=== PATIENT | male | born 1930 | race Caucasian/White ===

== ENCOUNTER → 2017-03-07 | Outpatient (CLI) | payer BC ==
[~2017-03-07] MED LIST: ASPCH81X PO; CARV25TA2 PO; LISI-729 PO; LOVA40TA4 PO; METF500T PO
[2017-03-07 13:27] LABS: ESTIMATED AVERAGE GLUCOSE 131 mg/dl; HA1C FLAG Normal (Normal)
[2017-03-07 13:40] LABS: ALT/SGPT 27 U/L (12-78); AST/SGOT 18 U/L (15-37); BLOOD UREA NITROGEN 19 mg/dl (7-18); BUN/CREATININE RATIO 12.5 (10-20); CALCIUM 8.3 mg/dl (8.5-10.1); CARBON DIOXIDE 27 mmol/L (21-32); CHLORIDE 102 mmol/L (98-107); GLUCOSE 109 mg/dl (70-99); POTASSIUM 4.6 mmol/L (3.5-5.1); SODIUM 137 mmol/L (136-145)
[2017-03-07 13:43] LABS: ALKALINE PHOSPHATASE 63 U/L (45-117); CHOLESTEROL 138 mg/dl (0-200); CHOLESTEROL/HDL RATIO 2.8; HDL CHOLESTEROL 49 mg/dl; LDL CHOLESTEROL CALCULATED 64 mg/dl; TRIGLYCERIDES 123 mg/dl (0-150); VERY LOW DENSITY LIPOPROT CALC 25 mg/dl
[2017-03-07 14:31] LABS: RATIO 451.4 mcg/mg (0-30.0)
== END | disposition home or self-care (01) ==
LOC: C.LABMFLN 08:05
PROVIDERS: ATTEND Family Medicine
DX: E11.9 Type 2 diabetes mellitus without complications (principal); I10 Essential (primary) hypertension; I25.10 Atherosclerotic heart disease of native coronary artery without angina pectoris; C43.9 Malignant melanoma of skin, unspecified

== ENCOUNTER → 2017-04-25 | Outpatient (CLI) | payer BC | END | disposition home or self-care (01) | LOC: C.PATHSPEC 10:12 | PROVIDERS: ATTEND Family Medicine | DX: L57.0 Actinic keratosis (principal) ==

== ENCOUNTER → 2017-05-25 | Day surgery (SDC) | payer BC ==
[2017-05-16 10:51] VITALS: Ht 172.7 cm; Wt 100.0 kg
[2017-05-18 10:08] LABS: BASO % 0.5 %; BASO ABS # 0.03 K/uL (0-0.2); COMPLETE YES; EOS % 2.7 %; HEMATOCRIT 37.7 % (42-52); IG% 0.4 %; LYMPH ABS # 1.26 K/uL (1.2-3.4); MEAN CORPUSCULAR HEMOGLOBIN 33.2 pg (25-34); MEAN CORPUSCULAR HGB CONC 35.3 g/dl (32-36); MEAN PLATELET VOLUME 9.6 fL (7.4-10.4); MONO % 11.7 %; NEUT % 61.7 %; PLATELET COUNT 173 K/uL (130-400); RED BLOOD COUNT 4.01 M/uL (4.7-6.1); WHITE BLOOD COUNT 5.49 K/uL (4.8-10.8)
[2017-05-18 10:18] LABS: PROTHROMBIN TIME (PATIENT) 10.8 SECONDS (9.0-12.0)
[2017-05-18 10:40] LABS: POTASSIUM 4.2 mmol/L (3.5-5.1)
[~2017-05-25] VITALS: Ht 172.7 cm; Wt 100.0 kg
[~2017-05-25] MED LIST changes: +LIDOCAINE/EPINEPHRINE 1% INJ 50 ML VIAL ONE
[2017-05-25 09:48] VITALS: BP 163/77; PULSE 51; TEMP 36.6; O2SAT 97
--- NOTE | 2017-05-25 10:50 | History & Physical Bridge - [place] ---
H&P Re-Evaluation Bridge Note: I have examined the patient, reviewed the History & Physical and in the interval since the performance of the History & Physical I have noted the following changes of clinical significance: No changes noted
--- NOTE | 2017-05-25 11:09 | Progress Note ---
Progress Note Date of Service May 25, 2017. Progress Note PATIENT'S RIGHT EAR SKIN LESION HAS COMPLETELY RESOLVED AND THEREFORE SURGERY CANCELLED. WILL FOLLOW PATIENT IN THE OFFICE.
== END | disposition home or self-care (01) ==
LOC: X.SURG 09:05
DX: L98.9 Disorder of the skin and subcutaneous tissue, unspecified (principal); I25.10 Atherosclerotic heart disease of native coronary artery without angina pectoris; M19.90 Unspecified osteoarthritis, unspecified site; I10 Essential (primary) hypertension; E78.5 Hyperlipidemia, unspecified; E11.9 Type 2 diabetes mellitus without complications; Z82.49 Family history of ischemic heart disease and other diseases of the circulatory system; Z82.2 Family history of deafness and hearing loss; Z79.82 Long term (current) use of aspirin; Z79.899 Other long term (current) drug therapy; Z79.84 Long term (current) use of oral hypoglycemic drugs; Z53.09 Procedure and treatment not carried out because of other contraindication

== ENCOUNTER → 2017-10-18 | Outpatient (CLI) | payer BC ==
[~2017-10-18] MED LIST changes: -LIDOCAINE/EPINEPHRINE 1% INJ 50 ML VIAL ONE
[2017-10-18 12:45] LABS: BASO % 0.9 %; BASO ABS # 0.04 K/uL (0-0.2); EOS % 4.8 %; EOS ABS # 0.22 K/uL (0-0.5); HEMATOCRIT 40.8 % (42-52); HEMOGLOBIN 13.8 g/dL (14.0-18.0); IG# 0.01 K/uL (0.00-0.02); LYMPH % 27.6 %; LYMPH ABS # 1.27 K/uL (1.2-3.4); MEAN CELL VOLUME 97.1 fL (80-100); MEAN CORPUSCULAR HEMOGLOBIN 32.9 pg (25-34); MEAN CORPUSCULAR HGB CONC 33.8 g/dl (32-36); MEAN PLATELET VOLUME 10.2 fL (7.4-10.4); MONO % 11.3 %; MONO ABS # 0.52 K/uL (0.11-0.59); NEUT % 55.2 %; NEUT ABS # 2.54 K/uL (1.4-6.5); PLATELET COUNT 167 K/uL (130-400); RED CELL DISTRIBUTION WIDTH CV 13.4 % (11.5-14.5); RED CELL DISTRIBUTION WIDTH SD 47.2 fL (36.4-46.3)
[2017-10-18 13:24] LABS: ALBUMIN 3.3 gm/dl (3.4-5.0); ALT/SGPT 27 U/L (12-78); BLOOD UREA NITROGEN 21 mg/dl (7-18); CARBON DIOXIDE 27 mmol/L (21-32); CHOLESTEROL 137 mg/dl (0-200); CREATININE 1.52 mg/dl (0.60-1.40); GLUCOSE 112 mg/dl (70-99); POTASSIUM 4.3 mmol/L (3.5-5.1); SODIUM 135 mmol/L (136-145)
[2017-10-18 13:27] LABS: ALKALINE PHOSPHATASE 59 U/L (45-117); AST/SGOT 22 U/L (15-37); LDL CHOLESTEROL CALCULATED 67 mg/dl; TOTAL PROTEIN 6.9 gm/dl (6.4-8.2)
== END | disposition home or self-care (01) ==
LOC: C.LABMFLN 07:03
PROVIDERS: ATTEND Family Medicine
DX: E11.9 Type 2 diabetes mellitus without complications (principal); I10 Essential (primary) hypertension; I25.10 Atherosclerotic heart disease of native coronary artery without angina pectoris; E78.5 Hyperlipidemia, unspecified

== ENCOUNTER → 2018-05-01 | Outpatient (CLI) | payer BC ==
[2018-05-01 12:42] LABS: BASO % 0.9 %; BASO ABS # 0.04 K/uL (0-0.2); EOS % 7.2 %; EOS ABS # 0.32 K/uL (0-0.5); HEMOGLOBIN 13.6 g/dL (14.0-18.0); IG# 0.01 K/uL (0.00-0.02); LYMPH % 29.1 %; MEAN CORPUSCULAR HGB CONC 35.8 g/dl (32-36); MEAN PLATELET VOLUME 10.2 fL (7.4-10.4); MONO % 13.2 %; MONO ABS # 0.59 K/uL (0.11-0.59); NEUT % 49.4 %; PLATELET COUNT 151 K/uL (130-400); RED CELL DISTRIBUTION WIDTH CV 13.4 % (11.5-14.5); RED CELL DISTRIBUTION WIDTH SD 46.3 fL (36.4-46.3); WHITE BLOOD COUNT 4.46 K/uL (4.8-10.8)
[2018-05-01 12:56] LABS: HEMOGLOBIN A1C 6.3 % (4.5-5.6)
[2018-05-01 13:04] LABS: ALBUMIN 3.3 gm/dl (3.4-5.0); ALKALINE PHOSPHATASE 65 U/L (45-117); ALT/SGPT 25 U/L (12-78); AST/SGOT 20 U/L (15-37); BLOOD UREA NITROGEN 13 mg/dl (7-18); CALCIUM 8.7 mg/dl (8.5-10.1); CARBON DIOXIDE 28 mmol/L (21-32); CHOLESTEROL 141 mg/dl (0-200); CREATININE 1.37 mg/dl (0.60-1.40); GLUCOSE 102 mg/dl (70-99); LDL CHOLESTEROL CALCULATED 67 mg/dl; POTASSIUM 4.5 mmol/L (3.5-5.1); SODIUM 132 mmol/L (136-145); TOTAL PROTEIN 6.7 gm/dl (6.4-8.2)
[2018-05-01 13:17] LABS: CREATININE RANDOM URINE 37.9 mg/dl
== END | disposition home or self-care (01) ==
LOC: C.LABMFLN 07:00
PROVIDERS: ATTEND Family Medicine
DX: E11.9 Type 2 diabetes mellitus without complications (principal); I10 Essential (primary) hypertension; I25.10 Atherosclerotic heart disease of native coronary artery without angina pectoris

== ENCOUNTER 2022-07-06 07:23 | Observation (INO) ==
--- NOTE | 2022-06-15 12:55 | PAT Medication Instructions ---
Medication Instructions Date of Service June 15, 2022 Home Medications Medication Instructions Recorded blood-glucose meter #1 ea 07/04/21 blood sugar diagnostic (Contour #100 ea 12/29/21 Test Strips) carvedilol 25 mg tablet 25 mg PO BID #180 tabs 03/16/22 metformin 500 mg tablet 500 mg PO BID #180 tabs 05/02/22 lovastatin 40 mg tablet 80 mg PO HS #180 tabs 05/29/22 aspirin 81 mg tablet,delayed release 81 mg PO QAM blood-glucose meter blood sugar diagnostic (Contour Test Strips) carvedilol 25 mg tablet 25 mg PO BID metformin 500 mg tablet 500 mg PO BID lovastatin 40 mg tablet 80 mg PO HS amlodipine 5 mg tablet 5 mg PO QAM lisinopril 40 mg tablet 40 mg PO QAM ASK your prescriber and surgeon aspirin 81 mg tablet,delayed release 81 mg PO QAM DO NOT take the morning of surgery metformin 500 mg tablet 500 mg PO BID lisinopril 40 mg tablet 40 mg PO QAM Take morning of surgery With a small sip of water, OTHERWISE NOTHING TO EAT OR DRINK AFTER MIDNIGHT: carvedilol 25 mg tablet 25 mg PO BID amlodipine 5 mg tablet 5 mg PO QAM Take evening before surgery carvedilol 25 mg tablet 25 mg PO BID metformin 500 mg tablet 500 mg PO BID lovastatin 40 mg tablet 80 mg PO HS Other Notes If you have any questions please call us at [phone] or [phone] or [phone] or [phone]
--- NOTE | 2022-06-21 14:31 | Anesthesiology Consultation ---
Date of Service June 21, 2022 Assessment & Plan (1) Encounter for pre-operative examination: - awaiting PCP pre-op evaluation. - Case discussed in detail with Dr. Villarreal including remote abnormal stress test without cardiac catheterization, who advised patient have PCP pre-op evaluation, nothing further needed from his standpoint. Pt has appt 07/03/22, will send workload note to PCP for this to also be pre-op evaluation appt. - check BSG am DOS. Chart Review Chart Review: Pending: Refer to Additional Notes / Consult section and Patient seen in Pre Admission Testing Teaching & Discussion Pre-Anesthesia Teaching/Discussion Notes: Instructed NPO after midnight before surgery, except medications with 15 cc of water. Medication instructions provided according to the PAT guidelines. History Surgery Operation Date: 07/06/22 09:00 Proposed Procedures p Resection Left Buccal Space Cancer, Possible Dermal Graft, Left Functional Neck Dissection - Tonya Stevens MD Height/Weight Height: 5 ft 8 in Weight: 99.4 kg Allergies Allergy/AdvReac Type Severity Reaction Status Date / Time No Known Allergies Allergy Verified 06/15/22 10:54 Medications Home Medications Medication Instructions Recorded Confirmed Last Taken aspirin 81 mg tablet,delayed 81 mg PO QAM #90 tabs 03/04/19 06/15/22 Unknown release blood-glucose meter #1 ea 07/04/21 06/07/22 Unknown blood sugar diagnostic (Contour #100 ea 12/29/21 06/07/22 Unknown Test Strips) carvedilol 25 mg tablet 25 mg PO BID #180 tabs 03/16/22 06/15/22 Unknown lovastatin 40 mg tablet 80 mg PO HS #180 tabs 05/29/22 06/15/22 Unknown amlodipine 5 mg tablet 5 mg PO QAM 06/15/22 06/15/22 Unknown lisinopril 40 mg tablet 40 mg PO QPM 06/15/22 06/21/22 Unknown Additional Notes: Pt takes lisinopril in evening, this was adjusted in EMR and on medication instructions. He verbalized understanding to take lisinopril evening before surgery. He no longer takes metformin and this was reviewed from medication list and instruction paper. 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 Per [place] records, abnormal stress test in 2008 and per remote cardiology records, cath vs medical management discussed and pt elected for medical management; pt denies any additional cardiac testing, does not follow with cardiology; follows with PCP Anemia pre-op H&H 06/21/22: Benign essential hypertension controlled, stable per pt; white coat hypertension Cervical spine disease Bridging osteophytes are noted throughout the cervical spine. Multilevel intervertebral disc space narrowing, severe at C5-C6 and C6/C7 with posterior disc osteophyte complex formations. Multilevel central canal and neural foraminal narrowing. History of blood transfusion History of chemotherapy ~21 years ago for melanoma [place] (hard of hearing) has bilat. 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 Exercise / Class Metabolic Activity III < 4 Walking/Shop/Light housework (denies CP or SOB With usual activities) Past Family History Family History Father Cancer Myocardial infarction Brother Hearing loss Cardiac disorder Mother Myocardial infarction Other Asthma Heart disease Hypertension Stomach cancer Denies family history of Ovarian cancer Prostate cancer Breast cancer Colorectal cancer Past Surgical History Surgical History (Updated 06/21/22 @ 14:38 by Arelis Calzada PA-C) H/O colonoscopy H/O melanoma excision History of cataract surgery rt/lt History of cholecystectomy Hx of external ear surgery rt-removal SCC w/skin graft + BCC removal lt-SCC removal Past Anesthesia History No Hx of Anesthesia Complications and No Family Hx of Anesthesia Complications History of PONV No Hx of PONV and No Hx of Motion Sickness Social History Smoking Status: Never smoker Do You Dip or Chew Tobacco: No Hx Alcohol Use: No Hx Substance Use: No substance use type: does not use Review of Systems Patient denies chest pain, shortness of breath, dyspnea on exertion, snoring, witnessed apneas, reflux, fever, chills, cough, wheezing, or palpitations. Physical Exam Vital Signs Vitals BP manual after patient resting 15-20 minutes 162/68 P 54 TEMP 98.7 SP02 99% on RA RESP 17 Physical Full cervical extension range of motion without pain TMD 3.5 finger breadths Mallampati Score 2 Dentition: edentulous, full upper and lower dentures Lungs: normal respiratory effort. Clear throughout to auscultation, no orthodoxy itious breath sounds Cardiac: regular rate and rhythm, no murmurs noted Carotid arteries: negative bruit bilat Lab Results Anesthesia Preop Results Results Anesthesia Widget: WBC 5.02 K/ul (4.8-10.8) 06/21/22 Hgb 11.5 g/dl (14.0-18.0) L 06/21/22 Hct 32.5 % (40.1-51.0) L 06/21/22 Plt 161 K/uL (130-400) 06/21/22 Na 131 mmol/L (136-145) L 06/21/22 K 4.4 mmol/L (3.5-5.1) 06/21/22 Cl 100 mmol/L (98-107) 06/21/22 CO2 26 mmol/L (21-32) 06/21/22 BUN 26 mg/dl (6-23) H 06/21/22 Glucose Level 114 mg/dl (70-99(Fasting)) H 06/21/22 HA1c 6.5 % (4.5-5.6) H 06/21/22 Testing Electrocardiogram Date: 06/21/22 Sinus bradycardia, rate 52 bpm Other Testing Soft tissue neck CT 06/05/22 Prior bilateral lens repair. Age-related involutional changes of the brain parenchyma. The vascular structures of the neck appear unremarkable. Patent nasopharynx, oral pharynx and hypopharynx. The parapharyngeal fat planes are symmetric and well-maintained. Calcifications of the epiglottis. The glottis and subglottic airway is within normal limits. Streak artifact from dental amalgam hardware limits evaluation of the oral cavity. Unremarkable carotid, submandibular and thyroid glands. No lymphadenopathy identified. No significant inflammatory changes. Mild nonspecific wall thickening of the upper thoracic esophagus. The lung apices are clear. No acute fracture identified. The mastoid air cells and paranasal sinuses are generally clear. Bridging osteophytes are noted throughout the cervical spine. Multilevel intervertebral disc space narrowing, severe at C5-C6 and C6/C7 with posterior disc osteophyte complex formations. Multilevel central canal and neural foraminal narrowing. IMPRESSION: 1. No acute inflammatory changes. 2. No lymphadenopathy. 3. Incidental findings as above. COVID-19 Risk Screen Screening Information COVID-19 Screen Date: 06/21/22 Exposure 21 Days Family/Household +COVID Last 21 Days: No Exposure 10 Days Any COVID Exposure Last 10 Days: No Symptoms Last 10 Days Experienced COVID Sx Last 10 Days: No + COVID 0-90 Days COVID + in Last 0-90 Days: No
--- NOTE | 2022-07-05 13:34 | History & Physical Report ---
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 Plan is for resection of buccal mucosa with either rotational mucosal flap or dermal skin graft. Due to the high risk of metastasis to the neck at 50% he will also undergo left functional neck dissection. History of Present Illness Chief Complaint: Squamous cell carcinoma left buccal mucosa. Primary Care Provider: Sohan Trimble MD This 89-year-old gentleman presented with progressive ulceration exophytic lesion of left buccal mucosa. Does not chew snuff. Biopsy showed squamous cell carcinoma. Allergies Allergy/AdvReac Type Severity Reaction Status Date / Time No Known Allergies Allergy Verified 07/03/22 10:00 Home Medications Medication Instructions Recorded Confirmed Type aspirin 81 mg tablet,delayed 81 mg PO QAM #90 tabs 03/04/19 06/15/22 History release blood-glucose meter #1 ea 07/04/21 07/03/22 Rx blood sugar diagnostic (Contour #100 ea 12/29/21 07/03/22 Rx Test Strips) carvedilol 25 mg tablet 25 mg PO BID #180 tabs 03/16/22 07/03/22 Rx lovastatin 40 mg tablet 80 mg PO HS #180 tabs 05/29/22 07/03/22 Rx amlodipine 5 mg tablet 5 mg PO QAM 06/15/22 07/03/22 History lisinopril 40 mg tablet 40 mg PO QPM 06/15/22 07/03/22 History blood-glucose meter (Contour Next #1 ea 07/04/22 Rx Meter) Past Med/Surg History Medical History 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 Per [place] records, abnormal stress test in 2008 and per remote cardiology records, cath vs medical management discussed and pt elected for medical management; pt denies any additional cardiac testing, does not follow with cardiology; follows with PCP Anemia pre-op H&H 06/21/22: Benign essential hypertension controlled, stable per pt; white coat hypertension Cervical spine disease Bridging osteophytes are noted throughout the cervical spine. Multilevel intervertebral disc space narrowing, severe at C5-C6 and C6/C7 with posterior disc osteophyte complex formations. Multilevel central canal and neural foraminal narrowing. History of blood transfusion History of chemotherapy ~21 years ago for melanoma [place] (hard of hearing) has bilat. hearing aids-"only wears them to hinduism" Hyperlipidemia Melanoma ~21 years ago Osteoarthritis of shoulders, bilateral Renal insufficiency Stage 3b chronic kidney disease Type 2 diabetes, controlled, with peripheral neuropathy diet controlled, per pt was recently taken off metformin and is monitoring BSG regularly at home, sees [place] PCP 07/03/22 for review Ulcer of buccal mucosa Surgical History H/O colonoscopy H/O melanoma excision History of cataract surgery rt/lt History of cholecystectomy Hx of external ear surgery rt-removal SCC w/skin graft + BCC removal lt-SCC removal Family History Father Cancer Myocardial infarction Brother Hearing loss Cardiac disorder Mother Myocardial infarction Other Asthma Heart disease Hypertension Stomach cancer Denies family history of Ovarian cancer Prostate cancer Breast cancer Colorectal cancer Social History Smoking Status: Never smoker Second Hand Exposure: No; Hx Alcohol Use: No Hx Substance Use: No Preferred Language: Cameroonian Communication Ability: Effective Visual Impairment: Limited Hearing Ability: Use of Hearing Aid Sulky Driver Required: No Beliefs That Will Affect Care: None marital status: Current Living Situation: Spouse current occupational status: retired Feels Safe at Home: Yes Childhood Exposure to Second-Hand Smoke: No caffeine: Yes during the past year weight has: remained stable Dental Care, Regularly: Yes Seatbelt Use: sometimes Sunscreen Use: Yes Do you think of yourself as: straight/heterosexual Assistive Devices: Denture - Upper, Glasses and Hearing Aid - Bilateral Physical Exam Constitutional: WD/WN, vitals as above Eyes: PERRL, conjunctivae normal, anicteric sclerae ENMT: external ear and nose normal, oropharynx normal Mouth: + oral mucosal abnormality (3 cm exophytic lesion of left buccal mucosa) Neck: No adenopathy palpated at this time Respiratory: normal respiratory effort, lungs clear to auscultation PG Care Time/CCT Total # of Minutes Spent Total Time Spent with Patient: Total time spent is greater than 50% in coordination of care (as documented) at patient's floor/unit and/or counseling patient: Coding Level of Care Code None Diagnoses Squamous cell carcinoma
[~2022-07-06 07:23] MED LIST changes: -ASPCH81X PO; +BACITRACIN OINT 15 GM TUBE ONE; -CARV25TA2 PO; +LIDOCAINE 2%/EPINEPHRINE 1:100,000 20ML ONE; -LISI-729 PO; -LOVA40TA4 PO; +LR 15ML/HR IV SCH; -METF500T PO; +MINERAL OIL LIGHT 10 ML BTL ONE
[2022-07-06] MEDS ORDERED: MIDAZOLAM HCL 1 MG/ML 2ML VIAL ONE (08:08)
[2022-07-06] MEDS ORDERED: fentaNYL citrate 100 MCG/2 ML VIAL ONE (08:09)
[2022-07-06] MEDS ORDERED: LIDOCAINE 2% MPF LOCAL 5 ML VIAL INFIL ONE (08:09)
[2022-07-06] MEDS ORDERED: PROPOFOL IV EMULSION 10 MG/ML 20 ML VIAL IV ONE ×2 (08:09→12:10)
[2022-07-06] MEDS ORDERED: GLYCOPYRROLATE 0.2 MG/ML VIAL ONE (08:09)
[2022-07-06] MEDS ORDERED: DEXAMETHASONE SOD INJ 4 MG/ML VIAL ONE (08:09)
[2022-07-06] MEDS ORDERED: ROCURONIUM BROMIDE 10 MG/ML 5 ML VIAL IV ONE (08:09)
[2022-07-06] MEDS ORDERED: ONDANSETRON INJ 2 MG/ML 2 ML VIAL ONE (08:09)
[2022-07-06] MEDS ORDERED: ATROPINE SULFATE 0.1 MG/ML 10ML SYR IV PRN (08:19)
[2022-07-06] MEDS ORDERED: ePHEDrine sulfate 50 MG/ML AMP IV PRN (08:19)
[2022-07-06] MEDS ORDERED: ONDANSETRON INJ 2 MG/ML 2 ML VIAL IV PRN ×2 (08:19→13:04)
--- NOTE | 2022-07-06 08:40 | History & Physical Bridge Note ---
Date of Service July 06, 2022 History & Physical Bridge Note I have examined the patient, reviewed the History & Physical and in the interval since the performance of the History & Physical I have noted the following changes of clinical significance: no changes noted
--- NOTE | 2022-07-06 09:07 | History & Physical Bridge Note ---
Date of Service July 06, 2022 History & Physical Bridge Note I have examined the patient, reviewed the History & Physical and in the interval since the performance of the History & Physical I have noted the following changes of clinical significance: no changes noted. I will be assisting Dr Stevens today for the planned surgery. Given the location of the lesion and the fact that tooth # 28 and 31 are grossly carious and fractured removal of these teeth are medically necessary to prevent flap and or skin graft healing problems. This was added to the consent and reviewed with patient.
[2022-07-06] MEDS ORDERED: SUGAMMADEX SODIUM 200 MG/2 ML VIAL IV ONE (09:10)
[2022-07-06] MEDS ORDERED: OXYMETAZOLINE 0.05% 30 ML BTL ONE (09:10)
[2022-07-06] MEDS ORDERED: CHLORHEXIDINE GLUCONATE 0.12% 480 ML ONE (09:36)
[2022-07-06] MEDS ORDERED: MoRPHine SULFATE 4 MG/ML 1 ML CARP\\VIAL IV STA (13:04)
--- NOTE | 2022-07-06 13:17 | Operative Report ---
PG Post Operative Report Pre & Post Diagnosis Operation Date: 07/06/22 09:00 Pre-Op Diagnosis: Squamous cell carcinoma left buccal mucosa Post-Op Diagnosis: Three centimeter squamous cell carcinoma left buccal mucosa. I identified the patient and participated in the time-out.: Yes Procedure Operation Date: 07/06/22 09:00 Actual Procedures p Resection Left Buccal Space Cancer, Left Functional Neck Dissection Vascularized Fat Graft(Left) - Tonya Stevens MD Surgeon Tonya Stevens MD, Samir Rich DDS, MD Promotional Representative Dr. Rich assisted this part of the procedure. I then assisted for his par Estimated Blood Loss 80 Findings Consistent with Post-Op Diagnosis 3 cm squamous cell carcinoma left buccal mucosa Specimens Squamous cell carcinoma left buccal mucosa Drains Jp-Gaming Anesthesia Type General Complications None Description of Procedure This 89-year-old gentleman was brought to the operating room, I identified the patient, prepped the patient with ChloraPrep after general nasotracheal anesthesia. The neck was hyperextended and turned to the right for left neck dissection. Incision was an apron flap incision. Incision line injected with 2% Xylocaine with 1-1000 strength epinephrine. Apron flap incision was made using 15 blade carried down through the skin and subcutaneous layer and platysma layer. The flap was elevated superiorly using the 15 blade, the Metzenbaum scissors, and the harmonic scalpel. Inferiorly the soft tissue was dissected away from the transverse cervical vessels which were preserved. Posteriorly dissection was opened along the anterior border the sternocleidomastoid and carried superiorly. Anteriorly dissection was along the omohyoid muscle and along the strap muscles superiorly. Dissection was continued along the jugular vein anterior and posterior to the jugular vein freeing up the neck contents from the jugular vein and from the omohyoid and from the sternocleidomastoid muscle. Dissection was continued superiorly to the submandibular gland anteriorly and to the angle of the mandible posteriorly. Dissection was continued along the jugular vein until the high jugular node was dissected free from the jugular vein. The posterior envelope was then dissected free from the sternocleidomastoid preserving the spinal accessory nerve. Greater auricular nerve was transected along with the dissection. Dissection was continued anteriorly along the mandible to the submandibular gland. Posterior facial vein was preserved along with the marginal mandibular nerve. In this manner the entire packet of the left functional neck tissue was freed and sent to pathology for permanent sections. Jp-Gaming drain was placed in the depths of the wound by making a stab incision inferiorly and then pulling the drain through the stab incision. Incision was closed with interrupted 3-0 Vicryl sutures on the platysma layer, 3-0 Vicryl sutures on the subcutaneous layer and then luciano on the skin layer. Dr. Rich assisted for entire procedure. At this point the patient was handed over to Dr. Rich for resection of the squamous cell carcinoma of the left buccal mucosa. I assisted and stay for the entire case to help Dr. Rich with the resection of the squamous cell carcinoma of the buccal mucosa and also with the closure. He tolerated procedure well and was taken recovery area in satisfactory condition. I attest to the content of the Intraoperative Record and any orders documented therein. Any exceptions are noted below.
[2022-07-06] MEDS: fentaNYL citrate 100 MCG/2 ML VIAL IV PRN ×4 (13:18→13:33)
--- NOTE | 2022-07-06 13:37 | Anesthesiology Progress Note ---
Date of Service July 06, 2022 Anesthesia Post Procedure Vital Signs Vital Signs: Temp Pulse Resp BP Pulse Ox O2 Del Method O2 Flow Rate 07/06/22 13:30 56 L 16 153/68 H 100 Nasal Cannula 2 07/06/22 13:20 56 L 16 161/69 H 100 Nasal Cannula 2 07/06/22 13:10 56 L 16 161/67 H 100 Nasal Cannula 2 07/06/22 13:00 55 L 16 176/67 H 98 Oxymask 2 07/06/22 12:50 54 L 18 164/64 H 100 Oxymask 5 07/06/22 12:44 97.5 F L 55 L 18 158/64 H 99 Oxymask 5 07/06/22 08:09 97.7 F 53 L 18 178/72 H 97 Room Air Transfer of Care Handoff Completed per policy Notes Mental Status: alert / awake / arousable and participated in evaluation Patient Amnestic to Procedure: Yes Nausea / Vomiting: adequately controlled Pain: adequately controlled Airway Patency, RR, SpO2: stable & adequate BP & HR: stable & adequate Hydration State: stable & adequate Anesthetic Complications: no major complications apparent and Pt Satisfied with anesthetic care
[2022-07-06] MEDS ORDERED: ceFAZolin 2000MG 2,000 MG/15 ML SYR IV ONE (14:00)
--- NOTE | 2022-07-06 14:19 | XRay Report ---
XR mandible <4V HISTORY: 89 years-old Male Status Post-Op Surgery AP Mandibular and Jaw View COMPARISON: CT soft tissue neck 06/05/2022 TECHNIQUE: 2 views of the mandible FINDINGS: Skin luciano project over the left neck. Soft tissue swelling within the neck and submandibular tissu es. No acute fracture, dislocation or unexpected opaque foreign body identified. Degenerative changes of the imaged cervical spine. IMPRESSION: Postoperative changes as above. ACT 112: Negative or not required by law. The above report was generated using voice recognition software. It may contain grammatical, syntax o r spelling errors. Electronically signed by: Slick Hernandez M.D. 07/06/2022 2:18 PM
[2022-07-06] MEDS: LACTATED RINGER'S 1,000 ML IV SCH (16:28)
[2022-07-06] MEDS ORDERED: PHARMACY GLYCEMIC MGMT CONSULT PRN (17:05)
[2022-07-06] MEDS: INSULIN ASPART PER UNIT SC SCH ×2 (17:29→22:03)
[2022-07-06] MEDS ORDERED: CARBOHYDRATES FOR HYPOGLYCEMIA PO PRN (17:30)
[2022-07-06] MEDS ORDERED: LANTUS PER UNIT CHARGE SQ ONE (17:30)
[2022-07-06] MEDS ORDERED: GLUCAGON FOR INJ 1 MG VIAL IM PRN (17:30)
[2022-07-06] MEDS ORDERED: GLUCOSE 40% GEL 15 GM TUBE PO PRN (17:30)
[2022-07-06] MEDS ORDERED: DEXTROSE 50% 50 ML SYRINGE IV PRN (17:30)
[2022-07-06] MEDS ORDERED: GLUCOSE 10 TAB/TUBE PO PRN (17:30)
[2022-07-06] MEDS: lisinopril 40 MG TAB PO SCH (20:29)
[2022-07-06] MEDS: carvediloL 25 MG TAB PO SCH (20:29)
[2022-07-06] MEDS: LOVASTATIN 20 MG TAB PO SCH (20:29)
[2022-07-07] MEDS: LACTATED RINGER'S 1,000 ML IV SCH (02:32)
[2022-07-07] MEDS: carvediloL 25 MG TAB PO SCH ×2 (08:25→20:23)
[2022-07-07] MEDS: ASPIRIN 81 MG ECTAB PO SCH (08:25)
[2022-07-07] MEDS: amLODIPine BESYLATE 5 MG TAB PO SCH (08:25)
--- NOTE | 2022-07-07 08:53 | Oral/Maxillofacial Progress Nt ---
Date of Service July 07, 2022 Assessment & Plan Admission and Anticipated Discharge Date Admission Date: July 06, 2022 Subjective Tre is doing very well this AM Oral excision site is coved with the oral pressure dressing and is very stable. Drainage as expected. He feels good. I reviewed the surgery and the clear margins on the frozen sections. Both Dr Stevens and myself will be following Tre in the office. I will plan on removing the oral pressure dressing early next week. Diet --soft as tolerated peridex rinse 2 x a day OK for D/C after Dr Stevens sees patient Results & Data ([facility]) Vital Signs (Past 12 Hours) Vital Signs Temp Pulse Resp BP Pulse Ox O2 Del Method 07/07/22 07:25 Room Air 07/07/22 07:14 37.1 C 61 16 142/66 H 95 Room Air 07/07/22 03:48 37.5 C 68 18 157/72 H 96 Nasal Cannula 07/06/22 22:53 37.1 C 72 18 156/74 H 97 Nasal Cannula PG Care Time/CCT Total # of Minutes Spent Total Time Spent with Patient: Total time spent is greater than 50% in coordination of care (as documented) at patient's floor/unit and/or counseling patient: Coding Level of Care Code None
[2022-07-07] MEDS: INSULIN ASPART PER UNIT SC SCH ×4 (08:55→21:00)
--- NOTE | 2022-07-07 13:23 | Pharmacy Report ---
Pharmacy Glycemic Short Note 2 - Date of Service July 07, 2022 - Glycemic Short BSG Results (Last 24 hours): 07/06/22 07/06/22 07/07/22 17:25 20:45 08:15 POC Glucose 185 H 145 H 116 H 07/07/22 12:08 POC Glucose 147 H OUTPATIENT ANTIDIABETIC REGIMEN: * Metformin 500mg PO BID * HbA1c: 6.4% (06/26/22) ASSESSMENT: * Mr Bingham is an 89yo diabetic M admitted for buccal/neck surgery related to squamous cell carcinoma. * Pt is POD #1 s/p buccal mucosa resection and neck dissection. * Pt received a dose of IV dexamethasone preoperatively, so he was given a dose of Lantus last evening to prevent steroid-induced hyperglycemia. * BSGs have been well-controlled today, therefore do not anticipate the need for any additional basal insulin. PLAN FOR INPATIENT GLYCEMIC CONTROL: * Hold outpatient oral diabetes medications * Basal insulin * Lantus 25 units SQ x1 dose post-op, last evening * Bolus insulin * NovoLog per scale ACHS or Q6hrs while NPO * Goal Range: Low 110 mg/dL - High 140 mg/dL * Correction Factor: 25 mg/dL/unit * Nutritional / Prandial insulin per carb ratio of 1 unit per 8 grams CHO consumed
[2022-07-07] MEDS: oxyCODONE/ACETAMINOPHEN 5mg/325mg TAB PO PRN ×2 (14:54→20:22)
[2022-07-07] MEDS: lisinopril 40 MG TAB PO SCH (20:22)
[2022-07-07] MEDS: LOVASTATIN 20 MG TAB PO SCH (20:23)
--- NOTE | 2022-07-08 08:55 | Ears,Nose,Throat Progress Note ---
Date of Service July 08, 2022 Assessment & Plan (1) Squamous cell carcinoma: Plan: s/p excision, had to be straight cathed after removal of Dennis, now able to urinate. Will discharge Admission and Anticipated Discharge Date Admission Date: July 06, 2022 Subjective Tre is doing very well this AM Oral excision site is coved with the oral pressure dressing and is very stable. Drainage as expected. He feels good. I reviewed the surgery and the clear margins on the frozen sections. Both Dr Stevens and myself will be following Tre in the office. I will plan on removing the oral pressure dressing early next week. Diet --soft as tolerated peridex rinse 2 x a day OK for D/C after Dr Stevens sees patient Physical Exam ENMT: Mouth: + oropharynx abnormality (bolster in place) Neck: drain in place, healing well Results & Data ([facility]) Vital Signs (Past 12 Hours) Vital Signs Temp Pulse Resp BP Pulse Ox O2 Del Method 07/08/22 07:26 36.4 C L 56 L 18 166/70 H 95 Room Air 07/08/22 02:52 36.6 C 57 L 18 122/60 93 Room Air 07/07/22 22:36 36.7 C 55 L 18 97/54 L 96 Room Air
--- NOTE | 2022-07-08 08:57 | Discharge Summary ---
Date of Service July 08, 2022 Admission HPI Per Admitting Provider This 89-year-old gentleman presented with progressive ulceration exophytic lesion of left buccal mucosa. Does not chew snuff. Biopsy showed squamous cell carcinoma. Admission Exam (Per Admitting) Constitutional WD/WN, vitals as above Eyes PERRL, conjunctivae normal, anicteric sclerae ENMT external ear and nose normal, oropharynx normal Mouth: + oropharynx abnormality (bolster in place) and + oral mucosal abnormality (3 cm exophytic lesion of left buccal mucosa) Respiratory normal respiratory effort, lungs clear to auscultation Discharge Data Procedures Performed Operation Date: 07/06/22 09:00 Actual Procedures p Resection Left Buccal Space Cancer, Left Functional Neck Dissection Vascularized Fat Graft(Left) - Tonya Stevens MD Hospital Course (1) Squamous cell carcinoma: s/p excision, had to be straight cathed after removal of Dennis, now able to urinate. Will discharge Plan Discharge to home, see me Sunday for removal of drain
[2022-07-08] MEDS: amLODIPine BESYLATE 5 MG TAB PO SCH (09:09)
[2022-07-08] MEDS: ASPIRIN 81 MG ECTAB PO SCH (09:09)
[2022-07-08] MEDS: carvediloL 25 MG TAB PO SCH (09:09)
[2022-07-08] MEDS: INSULIN ASPART PER UNIT SC SCH (09:12)
--- NOTE | 2022-07-08 14:03 | Operative Report ---
[facility] Post Operative Report Pre & Post Diagnosis Operation Date: 07/06/22 09:00 Pre-Op Diagnosis: Ulcer of Buccal Mucosa. Carious infected teeth # 18 and 21 Post-Op Diagnosis: Ulcer of Buccal Mucosa. 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 Carious teeth # 18 AND # 21 I identified the patient and participated in the time-out.: Yes Procedure Operation Date: 07/06/22 09:00 Actual Procedures p Resection Left Buccal Space Cancer, Left Functional Neck Dissection Vascularized Fat Graft(Left) - Tonya Stevens MD Extraction 18 and 21 Surgeon Samir Rich, DMD Senior Engineering Team Leader Dr. Rich assisted this part of the procedure. I then assisted for his par Estimated Blood Loss 80 Findings Consistent with Post-Op Diagnosis Specimens Ca of left check Drains as per Dr Stevens`s report Anesthesia Type General Complications none Indications Cancer left cheek mucosa Description of Procedure I assisted Dr Stevens for the neck dissection. Upon the completion of the neck I took over and excised the oral lesion with the immediate reconstruction while Dr Stevens assisted me. Present Complaint: 3 cm cancerous lesion (confirmed by incision biopsy ) left check mucosa with carious teeth # 18 and 21 the lesion was present for a few months Treatment Plan: I strongly suggested excision in hospital with functional neck procedure Dr Stevens and Dr Rich to work together-patient agreed to plan I reviewed the treatment plan and consent with the patient, will sign consent t. Understanding was expressed. Time was given for questions regarding the surgery, risks and post op care. Discussed alternative to treatment--procedure as planned, Do not do surgery Risks discussed: Bleeding,Pain,swelling,infection, delayed healing, nerve injury to face,lips,tongue,chin area which could be permanent (rare). recurrence, scaring, change in lip shape-rare. limited opening secondary to scaring Left side mass 3 cm SCA of left cheek mucosal tissue removal of # 18 and # 21 ICD 10 C06.0 CPT 13678 CPT 01774 fat flap to cover mucosal defect 3 cm ulcerated mass with a papilloma like appearance, very friable tissue that bleed very easy found left cheek. We marked an adequate boarder of normal mucosal tissue around the lesion. An Incision was made around the mass. The full thickness tissue biopsy was of the lesion was taken. The deep margin included a layer of fat and the buccinator muscle, over the masseter muscle as well as the periosteum near the alveolar ridge. Before starting the excision I removed the infected # 18 and 21 teeth. I took some tissue at the gingival margin for a frozen section. It was determined that the most inferior aspect of the lesion was free of cancer. I used this margin as the most inferior extent of the excision. The periosteum on the lingual ridge was intact. Now with both a 15 blade and electrosurg I was able to take a full thickness excision of this ulcerated mass following my predicative margins. The mass was now dissected off he muscle. Before doing so location sutures were placed to help the pathologist in orientating the lesion The tissue margins were treated with a low dose electrosurg setting to coagulate any bleeding. The lesion was delivered for pathology evaluation--frozen and permanent. This was a large defect, however the patient had an obtundent buccal fat pad with an excellent blood supply. I was able to tease the fat pad out and was early able to advance the fat flap to cover the muscle over the large defect. While waiting for the frozen section results I was able to place the fat flap over the defect and tacked it in place. Once it was determined that the margins were all clear--I continued the suturing of the fat flap with a 4-0 Vicryl to obtain a very nice closure of the defect. Once completed I used a small pad of iodoform gauze gauze and secured the gauze over the fat flap to act as a bolster to help tissue containment and pressure over the area. I skin suture was placed to add stability. Once done the the pad was very secure over the fat flap. A pressure dressing on the neck was placed and the KIKI rain was functioning very well. Both Dr Stevens and Layla will follow Mr. Bingham He will be admitted tonight . I attest to the content of the Intraoperative Record and any orders documented therein. Any exceptions are noted below.
== END 2022-07-08 12:02 | disposition home or self-care (01) ==
LOC: ASU 07:23 → PACUINP 07:23 → 3E 16:29